=== PATIENT | female | born 1955 | race Caucasian/White ===

== ENCOUNTER 2018-09-13 07:45 | Day surgery (SDC) | payer BC ==
[2018-09-13] MEDS: SOD CHLORIDE 0.9% 1,000 ML IV (10:00)
[2018-09-13] MEDS: MIDAZOLAM 1 MG/ML 2 ML INJ (10:02)
[2018-09-13] MEDS: FENTAnyl 50 MCG/ML VIAL ×2 (10:21→11:00)
[2018-09-13] MEDS: LIDOCAINE 1% (MPF) 5 ML VIAL (10:25)
[2018-09-13] MEDS: ONDANSETRON 4 MG INJ (11:07)
[2018-09-13] MEDS: HYDROCODONE/APAP (5/325) TAB PO (11:38)
== END 2018-09-13 13:40 | disposition home or self-care (01) ==
LOC: SDS 07:45
DX: C78.7 Secondary malignant neoplasm of liver and intrahepatic bile duct (principal)
CPT/HCPCS: 47000; 77012; 88307; 88313; 88341; 88342